=== PATIENT | female | born 1955 | race Caucasian/White ===

== ENCOUNTER 2017-09-15 07:21 | Day surgery (SDC) | payer OTHER ==
[2017-09-15] MEDS ORDERED: Heparin 5,000 UNITS/ML VIAL ONE (08:25)
[2017-09-15] MEDS ORDERED: CEFAZOLIN/Water 2 GM/20 ML SYRINGE ONE (08:25)
[2017-09-15 08:33] LABS: Anion Gap 11 mmol/L (10-20); BUN (Urea Nitrogen) 29 mg/dL (9.8-20.1); Calc. Creatinine Clearance 0 mL/min (70-130); Calcium 10.2 mg/dL (7.8-10.44); Carbon Dioxide 35 mmol/L (22-29); Chloride 98 mmol/L (98-107); Estimated GFR-MDRD 67; Glucose 90 mg/dL (70-105); Potassium 4.5 mmol/L (3.5-5.1); Sodium 139 mmol/L (136-145)
[2017-09-15] MEDS ORDERED: Sodium Chloride 0.9% 10 ML ONE (09:24)
[2017-09-15] MEDS ORDERED: Bupivacaine/Epinephrine 0.25% 30 ML VIAL ONE (09:24)
[2017-09-15] MEDS ORDERED: Gentamicin 80 MG/2 ML VIAL ONE (09:24)
[2017-09-15] MEDS ORDERED: Fentanyl 250 MCG/5 ML VIAL ONE (09:27)
[2017-09-15] MEDS ORDERED: Lidocaine 1% PF 5 ML VIAL ONE (12:07)
[2017-09-15] MEDS ORDERED: Vecuronium 10 MG VIAL ONE (12:07)
[2017-09-15] MEDS ORDERED: Dexamethasone 20 MG/5 ML VIAL ONE (12:07)
[2017-09-15] MEDS ORDERED: PROPOFOL 200 MG/20 ML VIAL ONE (12:07)
[2017-09-15] MEDS ORDERED: Ondansetron HCl/PF 4 MG/2 ML Vial ONE (12:07)
[2017-09-15] MEDS ORDERED: ePHEDrine/0.9% NaCl/PF SYRINGE 50 mg/10 ml ONE (12:07)
[2017-09-15] MEDS ORDERED: Glycopyrrolate 0.2 MG/ML 5 ML SYRINGE ONE ×2 (12:07→12:45)
--- NOTE | 2017-09-15 12:48 | EKG ---
Test Reason : PREOP Blood Pressure : / mmHG Vent. Rate : 038 BPM Atrial Rate : 038 BPM P-R Int : 198 ms QRS Dur : 092 ms QT Int : 526 ms P-R-T Axes : 075 029 040 degrees QTc Int : 418 ms Marked sinus bradycardia Abnormal ECG When compared with ECG of 13-MAY-2016 16:23, No significant change was found Confirmed by MYNOR CREWS [id number]), managing editor PIPE GARNER ([id number] on 09/15/2017 12:47:37 PM Referred By: JUSTICE Confirmed By:MYNOR CREWS
--- NOTE | 2017-09-16 14:16 | OP ---
DATE OF PROCEDURE: 09/15/2017 PREOPERATIVE DIAGNOSIS: Excess abdominal skin. POSTOPERATIVE DIAGNOSES: Excess abdominal skin. PROCEDURE: Abdominoplasty. OPERATIVE PROCEDURE: Following induction of adequate anesthesia, the patient was prepped and draped in the supine position. A low transverse incision was made. Dissection was carried sharply down to a plane just above the abdominal wall fascia leaving a small amount of sub [place]'s fat attached to t he fascia. Dissection was carried cephalad to the level of the umbilicus which circum-incised with d issection being made continuous to more posterior and inferior dissection. The sub [place]'s fat was removed at the midline. This allowed for plication using interrupted and running 0 Prolene sutures. Tap blocks were performed. Tap blocks were performed under direct visualization. The patient was p laced in a flexed position, the excess skin was marked and excised. Closure was performed by kylee g the anterior abdominal flap down to the abdominal wall fascia using OV-Loc suture. The low transve rse fascia [place]'s fascia was similarly closed. The remainder of the closure was done with 3-0 PDS suture and 3-0 Monocryl suture. The umbilicus was brought out through a gullwing skin incision and i nset using 3-0 PDS suture and 3-0 Prolene suture. Prior to closure all [place] were copiously irrigat ed and inspected for meticulous hemostasis. A drain was also placed prior to closure.
== END 2017-09-15 14:56 | disposition home or self-care (01) ==
LOC: SDC 07:21
PROVIDERS: ATTEND Plastic Surgery
PROC: 0J080ZZ Alteration of Abdomen Subcutaneous Tissue and Fascia, Open Approach (ICD-10-PCS; principal; 2017-09-15)
DX: Z41.1 Encounter for cosmetic surgery (principal); L98.7 Excessive and redundant skin and subcutaneous tissue; I10 Essential (primary) hypertension; E78.5 Hyperlipidemia, unspecified; M19.90 Unspecified osteoarthritis, unspecified site; G47.30 Sleep apnea, unspecified; Z79.899 Other long term (current) drug therapy; Z98.84 Bariatric surgery status
CPT/HCPCS: 36415; 80048; 93005; 93010; A4216; J1100; J1580; J1644; J2001; J2405; J2704; J3010; J3370; J3490